=== PATIENT | female | born 1960 | race Caucasian/White ===

== ENCOUNTER 2020-03-31 15:08 | Inpatient (IN) | payer OTHER ==
[2020-03-31] VITALS (7 sets, daily range): BP systolic 81–115; BP diastolic 55–93
[~2020-03-31] VITALS: Ht 160 cm; Wt 93.7 kg
[~2020-03-31 15:08] MED LIST: AMLO1CAP4 PO; THYR60TA4 PO
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
[2020-03-31] MEDS ORDERED: KETOROLAC 30 MG/ML VIAL IM ONE (16:30)
[2020-03-31] MEDS ORDERED: ASPIRIN 81 MG CHEW (CHILDREN'S ASA) ONE (19:05)
[2020-03-31] MEDS ORDERED: TICAGRELOR 90 MG TABLET (BRILINTA) PO ONE ×2 (19:06→19:15)
--- NOTE | 2020-03-31 19:10 | NUR ---
Consent obtained for patient to go to rn cardiac cath.
[2020-03-31] MEDS ORDERED: ASPIRIN 81 MG CHEW (CHILDREN'S ASA) PO ONE ×2 (19:15→19:30)
[2020-03-31] MEDS ORDERED: meTOprolol 5 MG/5 ML (LOPRESSOR) VIAL ONE ×2 (19:17→19:23)
--- NOTE | 2020-03-31 19:32 | Cardiac Procedure Note-CS/ASA ---
Pre-Procedure Note Pre-Op Procedure Note H&P Reviewed The H&P was reviewed, patient examined and no changes noted. Date H&P Reviewed: Mar 31, 2020 Time H&P Reviewed: 19:32 Conscious Sedation Pre-Proced Time 19:32 ASA Score 3 For ASA 3 and 4: Consider anesthesia and medical clearance. Also, for patients with a history of failed moderate sedation consider anesthesia. Airway Lungs Heart ASA score ASA 1: a normal healthy patient ASA 2: a patient with a mild systemic disease (mid diabetes, controlled hypertension, obesity x ASA 3: a patient with a severe systemic disease that limits activity (angina, COPD, prior Myocardial infarction) ASA 4: a patient with an incapacitating disease that is a constant threat to life (CHF, renal failure) ASA 5: a moribund patient not expected to survive 24 hrs. (ruptured aneurysm) ASA 6: a declared brain- patient whose organs are being harvested. For emergent operations, add the letter E after the classification Mallampati Classification Grade 3 Sedation Plan Analgesia, Amnesia, Plan communicated to team members, Discussed options with patient/fam, Discussed risks with patient/fam The patient is an appropriate candidate to undergo the planned procedure, sedation, and anesthesia. The patient immediately re-assessed prior to indication. KYLEE CERNA MD Mar 31, 2020 19:32
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
[2020-03-31] MEDS ORDERED: NS IV 1000 ML 1,000 ML ONE (19:36)
[2020-03-31] MEDS ORDERED: MIDAZOLAM 5 MG/5 ML (VERSED) VIAL ONE (19:36)
[2020-03-31] MEDS ORDERED: fentaNYL INJECTION 100 MCG/2 ML AMP ONE (19:36)
[2020-03-31] MEDS ORDERED: LIDOCAINE 1% INJ 20 ML 20 ML VIAL ONE (19:36)
[2020-03-31] MEDS ORDERED: HEParin (CATH LAB) 2,000 ML IV ONE (19:36)
[2020-03-31] MEDS ORDERED: HEParin 1000 UNIT/ML (10ML VIAL) FOR BOLUS ONE (19:38)
[2020-03-31] MEDS ORDERED: NITRO DRIP 25000 MCG/D5W 250 ML IV ONE (19:38)
--- NOTE | 2020-03-31 19:45 | NUR ---
Patient taken to produce laborer by produce laborer team.
[2020-03-31] MEDS: NS IV 1000 ML 1,000 ML IV SCH ×2 (20:13→23:15)
[2020-03-31] MEDS ORDERED: PATIENT MAY USE OWN MEDS, ALL PO SCH (20:15)
[2020-03-31] MEDS ORDERED: NS IV 1000 ML 1,000 ML IV SCH (20:15)
[2020-03-31 20:18] LABS: HEMOGLOBIN 11.7 g/dL (11.5-16.0); MEAN PLATELET VOLUME 10.5 fL (9.0-12.2); WHITE BLOOD COUNT 10.1 10^3/uL (4.3-11.0)
--- NOTE | 2020-03-31 20:22 | Cardiac Cath Report ---
Cardiac Cath Report Physician (s)/Card Painter (s) Physician KYLEE CERNA MD Pre-Procedure Diagnosis Pre-Procedure Diagnosis: Non-ST elevation myocardial infarction Post-Procedure Note Procedure Start Date: Mar 31, 2020 Name of Procedure: Left heart catheterization Left ventriculogram Aortic root angiogram Findings/Procedure Note PROCEDURE NOTE: 59 years old lady admitted with acute chest pain, had EKG changes and elevation in troponin level 4.283. Continue to have mild heaviness in the chest, emergency cardiac catheterization was recommended,. After explaining the procedure to the patient, all pros and cons were explained, all questions were answered. The patient signed the consent and then she was placed on the cardiac catheterization laboratory. Groin was prepped SL fashion local anesthesia was used. Sheath placed in the artery. Matt right and left catheter were used to access the coronary system. Pigtail was used to access the left ventricular cavity. Left ventriculogram was done in 2 views Aortic root angiogram At the end of the procedure the sheath was removed. Closure device was deployed FINDINGS: Hemodynamics LV patient was hypertensive on arrival to the emergency room, given IV Lopressor and after sedation blood pressure became borderline low, LV pressure 88/24, end-diastolic pressure 24 Aorta 95/68 mean of 78 ANATOMY: Left Main is free of obstructive disease Left Anterior Descending is free of obstructive disease Left Circumflex is codominant artery with mild disease no signal can obstructive disease Right Coronory Artery has no significant obstructive disease LV Gram was done in the right anterior lobe like and left anterior oblique position both views showed normal left ventricular size, EF 50 percent Aorta evaluation done with aortic root angiogram showing normal aortic root, ascending aorta, aortic arch and descending aorta, no dissection or aneurysm was noted adherent, origin of the innominate artery, and left subclavian and left carotid arteries were normal CONCLUSION: 1. Normal coronary system 2. Normal left ventricular systolic function with ejection fraction 50 percent, elevated left ventricular end-diastolic pressure 3. Normal thoracic aorta DISCUSSION AND RECOMMENDATION: Patient had some chest pain and elevation in troponin with elevated blood pressure on arrival to the emergency room. Currently does not have any obstructive coronary artery disease, I will repeat her troponin evaluation. Patient was started on aspirin. Anesthesia Type: Conscious Sedation Estimated blood loss (mL): 25 ml Contrast Amount: 53 ml Total Radiation Dose: 401 mGy Post-Procedure Diagnosis Post-operative diagnosis: Chest pain Elevated troponin level Hypertension Back pain KYLEE CERNA MD Mar 31, 2020 20:22
[2020-03-31 20:29] LABS: PROTHROMBIN TIME PATIENT 13.9 SEC (12.2-14.7)
[2020-03-31 20:32] LABS: ALBUMIN 3.5 GM/DL (3.2-4.5)
[2020-03-31 20:33] LABS: CALCIUM 8.1 MG/DL (8.5-10.1)
[2020-03-31 20:34] LABS: GLUCOSE 138 MG/DL (70-105)
[2020-03-31 20:35] LABS: TOTAL PROTEIN 5.4 GM/DL (6.4-8.2)
[2020-03-31 20:36] LABS: BILIRUBIN,TOTAL 0.3 MG/DL (0.1-1.0); CARBON DIOXIDE 20 MMOL/L (21-32)
[2020-03-31 20:38] LABS: CREATININE SERUM 0.71 MG/DL (0.60-1.30); GFR ESTIMATED > 60
[2020-03-31 20:39] LABS: BUN/CREATININE RATIO 28
[2020-03-31 20:41] LABS: ALANINE AMINOTRANSFERASE 14 U/L (0-55)
[2020-03-31 21:30] LABS: ALKALINE PHOSPHATASE 51 U/L (40-136); CHLORIDE 108 MMOL/L (98-107); POTASSIUM 3.6 MMOL/L (3.6-5.0); SODIUM 137 MMOL/L (135-145)
--- NOTE | 2020-03-31 22:55 | NUR ---
2255-DANIELA COLLINS TO ROOM TO ASSESS RIGHT GROIN SITE. SITE SOFT AND DRESSING DRY/INTACT. D/T PATIENT'S DECREASING BLOOD PRESSURE OF 63/42, PULSE-65. PATIENT FELT NAUSEOUS, CLAMMY, AND HOT. CALLED DR. CERNA AND REPORTED PATIENT'S SYMPTOMS AND INFORMED HIM THAT RIGHT GROIN SITE CONTINUED TO BE SOFT AND DRY/INTACT AND THAT NORMAL SALINE WAS BEING BOLUSED . RECEIVED ORDER FOR 1MG ATROPINE. PRESSURE HELD FOR 10 MIN. 2314-DR. CERNA TO BEDSIDE. INFORMED HIM THAT ATROPINE HAD BEEN ADMINISTERED. GROIN SITE ASSESSED AND CONTINUED TO BE SOFT AND DRY/INTACT. CURRENT BP-88/57. RECEIVED ORDERS FOR 2L BOLUS. 233-DANIELA BRAVO AND ERICA HERRERA FROM SALES TEAM LEADER TO BEDSIDE TO ASSESS PATIENT. MANUAL PRESSURE HELD FOR 11 MIN BY DANIELA BRAVO. RIGHT GROIN SITE CONTINUED THROUGHOUT THIS TIME TO BE SOFT, DRY/INTACT. 0100-CALLED DR. CERNA AND INFORMED HIM THAT PATIENT'S BOLUS IS FINISHED AND HER CURRENT PRESSURE IS 72/50. RECEIVED ORDERS TO OBTAIN STAT CT OF ABD AND PELVIS. 0110-RECEIVED CALL FROM DR. CERNA AND RECEIVED ORDER TO START DOBUTAMINE GTT AT 10MCG. ORDER REPEATED AND READ BACK TO VERIFY. 0220-RECEIVED CALL FROM DR. CERNA AND INFORMED HIM THAT PATIENT IS C/O NAUSEA AND ANXIETY AND IS TACHY AT 120s. CURRENT BLOOD PRESSURE-109/70. RECEIVED ORDER TO DECREASE DOBUTAMINE GTT TO 7.5MCG WITH THE GOAL OF LOWER HR WHILE STILL MAINTAINING SYSTOLIC BP IN THE 90s. ALSO RECEIVED ORDER FOR ZOFRAN.
[2020-03-31] MEDS ORDERED: ATROPINE INJ 0.4 MG/ML SDV IV ONE (23:00)
[2020-03-31] MEDS ORDERED: ATROPINE INJECTION 1 MG/10 ML SYR (ABBOTT) ONE (23:01)
[2020-04-01] VITALS (15 sets, daily range): BP systolic 78–124; BP diastolic 46–81
[2020-04-01] MEDS: NS IV 1000 ML 1,000 ML IV SCH ×4 (00:15→13:14)
[2020-04-01] MEDS ORDERED: DOPamine DRIP 250 ML IV SCH (01:15)
[2020-04-01] MEDS ORDERED: DOPamine DRIP 0 ML IV ONE (01:16)
[2020-04-01] MEDS ORDERED: DOBUTamine DRIP 250 ML IV ONE (01:19)
[2020-04-01] MEDS: DOBUTamine DRIP 250 ML IV SCH ×4 (01:29→17:27)
[2020-04-01] MEDS ORDERED: ONDANSETRON 4 MG/2 ML (SDV) Z0FRAN ONE (02:25)
[2020-04-01] MEDS ORDERED: ONDANSETRON 4 MG/2 ML (SDV) Z0FRAN IVP PRN (02:45)
[2020-04-01 03:37] LABS: HEMOGLOBIN 12.3 g/dL (11.5-16.0); MEAN PLATELET VOLUME 10.5 fL (9.0-12.2); WHITE BLOOD COUNT 11.1 10^3/uL (4.3-11.0)
[2020-04-01 03:59] LABS: BUN/CREATININE RATIO 27; CARBON DIOXIDE 17 MMOL/L (21-32); CHLORIDE 112 MMOL/L (98-107); CREATININE SERUM 0.67 MG/DL (0.60-1.30); GFR ESTIMATED > 60; GLUCOSE 140 MG/DL (70-105); POTASSIUM 3.6 MMOL/L (3.6-5.0); SODIUM 140 MMOL/L (135-145)
--- NOTE | 2020-04-01 07:28 | Diagnostic Imaging Report ---
PROCEDURE: CT abdomen and pelvis without contrast. TECHNIQUE: Multiple contiguous axial images were obtained through the abdomen and pelvis without the use of intravenous contrast. Auto Exposure Controls were utilized during the CT exam to meet ALARA standards for radiation dose reduction. INDICATION: Hypotension after heart catheterization. Evaluate for retroperitoneal hematoma. FINDINGS: The lung bases demonstrate some minimal groundglass opacities within the lower lobes which could reflect pneumonitis or mild edema. There is no dense alveolar consolidation or significant effusion. Liver demonstrates a low-density cyst within the left hepatic lobe. There are also small gallstones within the gallbladder without biliary dilatation. The pancreas demonstrates no evidence of a focal abnormality. The spleen is normal in size. There is no adrenal mass. There is contrast within the kidneys related to the patient's previous heart catheterization. There is no hydronephrosis. There are no findings of small or large bowel dilation. There is a large degree of stool within the colon. There is no abnormal colonic thickening. The appendix appears normal. There is no free air or free fluid. There are no CT findings of a retroperitoneal hematoma. There is some stranding demonstrated about the right groin related to a recent groin access. This examination cannot exclude pseudoaneurysm or fistula. No acute or suspicious osseous abnormality is demonstrated. IMPRESSION: 1. No CT evidence for retroperitoneal hematoma. 2. No acute inflammatory or obstructive process evident. 3. Cholelithiasis without biliary dilatation. 4. Large degree of stool within the colon 5. Soft tissue stranding within the right groin related to recent venous access. While there is no retroperitoneal hematoma demonstrated, this examination cannot exclude a pseudoaneurysm or fistula. If clinical concern for those entities, ultrasound could be considered. Dictated by: Dictated on workstation # [id number]
[2020-04-01] MEDS: ASPIRIN E.C. 81 MG (ECOTRIN) TAB PO SCH (08:08)
[2020-04-01] MEDS ORDERED: HYDR12.56 PO (10:22)
[2020-04-01] MEDS ORDERED: METF-399 PO (10:22)
[2020-04-01] MEDS ORDERED: LEVO75TA6 PO (10:22)
[2020-04-01] MEDS ORDERED: AMLO1CAP4 PO (10:26)
[2020-04-01] MEDS ORDERED: MULT-974 PO (10:27)
[2020-04-01] MEDS ORDERED: B (10:28)
[2020-04-01] MEDS ORDERED: VITAMIN D PO (10:30)
--- NOTE | 2020-04-01 12:23 | Cardiology Progress Note ---
Subjective Date Seen by Provider: Apr 01, 2020 Time Seen by Provider: 12:19 Subjective/Events-last exam Patient is sitting comfortably in bed. Had significant hypotension last night did not respond to fluid challenge for a total of 3 L, CT of the abdomen and pelvis did not show any acute abnormality. I started her on dobutamine drip which improved her heart rate and blood pressure. Currently weaned off the dobutamine drip and borderline hypotensive Review of Systems General: No Chills, No Night Sweats; Fatigue; No Malaise, No Appetite, No Other HEENT: No Head Aches, No Visual Changes, No Eye Pain, No Ear Pain, No Dysphasia, No Sinus Congestion, No Post Nasal Drip, No Sore Throat, No Other Pulmonary: No Dyspnea, No Cough, No Pleuritic Chest Pain, No Other Cardiovascular: No: Chest Pain, Palpitations, Orthopnea, Paroxysmal Noc. Dyspnea, Edema, Lt Headedness, Other Objective-Cardiology Exam Last Set of Vital Signs Vital Signs 04/01/20 04/01/20 07:16 11:00 Temp 36.1 Pulse 100 Resp 21 B/P (MAP) 105/80 (88) Pulse Ox 99 O2 Delivery Nasal Cannula O2 Flow Rate 2.00 Capillary Refill : Less Than 3 Seconds I&O Intake and Output 04/01/20 00:00 Intake Total 1000 ml Output Total 0 ml Balance 1000 ml Intake IV Total 1000 ml Output Urine Total 0 ml Daily Weight Change No No General: Alert, Oriented X3, Cooperative, No Acute Distress HEENT: Atraumatic, PERRLA Neck: Supple, No JVD Lungs: Clear to Auscultation, Normal Air Movement Heart: Regular Rate, Normal S1, Normal S2, No Murmurs Abdomen: Normal Bowel Sounds, Soft, No Tenderness, No Hepatosplenomegaly, No Masses Extremities: No Clubbing, No Cyanosis, No Edema, Normal Pulses, No Tenderness/Swelling Skin: No Rashes, No Breakdown, No Significant Lesion Neuro: Normal Gait, Normal Speech, Strength at 5/5 X4 Ext, Normal Tone, Sensation Intact Psych/Mental Status: Mental Status NL, Mood NL Results Lab Laboratory Tests 03/31/20 20:05 04/01/20 03:20 A/P-Cardiology Admission Diagnosis Subacute myocardial infarction Coronary artery disease Chest pain Hypertension Diabetes mellitus Assessment/Plan Elevated troponin level, type II myocardial infarction, unknown etiology. Patient was hypertensive on arrival to the emergency room then became hypotensive. Conservative management is recommended Cardiac catheterization was carried out on March 31, 2020 showing normal coronaries. Continue to monitor Congestive heart failure, acute left ventricular systolic dysfunction with ejection fraction 30-35 percent, nonischemic cardiomyopathy. Hypokinesia involving the anterior wall, anterior septum, anteroapex and true apex. Questionable transient thrombosis that was cleared out in the LAD, did not see any significant obstructive disease or nonobstructive disease in her LAD system, other possibility is Takatsubo myocarditis, consideration for tickborne myocardi tis. Patient will have a LifeVest fitted and I will try to introduce her at a very low dose to losartan 12.5 mg and carvedilol 3.125 mg and evaluate tolerance and response. If she tolerated the medication well I will consider discharging her in the morning X Echocardiogram done on April 01, 2020 showing prominent left ventricle with hypokinesia involving the anterior wall, anterior septum, anterolateral wall and anterior apex, ejection fraction 30-35 percent, aneurysmal intra-atrial septum. Pulmonary hypertension PA pressure 40-45 mmHg. Diabetes mellitus, maintained on metformin, currently on hold Hypothyroidism, I restarted her levothyroxin. COVID testing was negative Clinical Quality Measures DVT/VTE Risk/Contraindication: Risk Factor Score Per Nursin RFS Level Per Nursing on Admit: 2=Moderate KYLEE CERNA MD Apr 01, 2020 12:23
[2020-04-01] MEDS: LOSARTAN 25 MG (COZAAR) TAB PO SCH (13:27)
[2020-04-01] MEDS: ENOXAPARIN 40 MG/0.4 ML (LOVENOX) SYR SQ SCH (13:44)
[2020-04-01] MEDS ORDERED: ACETAMINOPHEN 325 MG TABLET ONE (18:50)
[2020-04-01] MEDS: ACETAMINOPHEN 325 MG TABLET PO PRN (18:52)
[2020-04-01] MEDS: CARVEDILOL 3.125 MG (COREG) TABLET PO SCH (20:38)
[2020-04-02] VITALS (7 sets, daily range): BP systolic 96–129; BP diastolic 58–90
[2020-04-02] MEDS: DOBUTamine DRIP 250 ML IV SCH (02:11)
[2020-04-02] MEDS: NS IV 1000 ML 1,000 ML IV SCH (03:17)
[2020-04-02 03:37] LABS: HEMOGLOBIN 11.7 g/dL (11.5-16.0); MEAN PLATELET VOLUME 10.3 fL (9.0-12.2); WHITE BLOOD COUNT 9.9 10^3/uL (4.3-11.0)
[2020-04-02 03:46] LABS: ALBUMIN 3.6 GM/DL (3.2-4.5)
[2020-04-02 03:47] LABS: CHLORIDE 112 MMOL/L (98-107); SODIUM 142 MMOL/L (135-145)
[2020-04-02 03:48] LABS: CALCIUM 8.6 MG/DL (8.5-10.1)
[2020-04-02 03:49] LABS: GLUCOSE 106 MG/DL (70-105); TOTAL PROTEIN 5.6 GM/DL (6.4-8.2)
[2020-04-02 03:50] LABS: CARBON DIOXIDE 21 MMOL/L (21-32)
[2020-04-02 03:51] LABS: BILIRUBIN,TOTAL 0.5 MG/DL (0.1-1.0)
[2020-04-02 03:52] LABS: ALKALINE PHOSPHATASE 49 U/L (40-136)
[2020-04-02 03:53] LABS: GFR ESTIMATED > 60
[2020-04-02 03:54] LABS: BUN/CREATININE RATIO 16
[2020-04-02 03:56] LABS: ALANINE AMINOTRANSFERASE 16 U/L (0-55)
[2020-04-02] MEDS: LEVOTHYROXINE 75 MCG (LEVOTHROID) TABLET PO SCH (05:21)
[2020-04-02] MEDS: ACETAMINOPHEN 325 MG TABLET PO PRN ×3 (05:23→20:37)
[2020-04-02] MEDS ORDERED: VITAMIN D PO SCH (09:00)
[2020-04-02] MEDS: CARVEDILOL 3.125 MG (COREG) TABLET PO SCH ×2 (09:28→20:37)
[2020-04-02] MEDS: LOSARTAN 25 MG (COZAAR) TAB PO SCH (09:28)
[2020-04-02] MEDS: ASPIRIN E.C. 81 MG (ECOTRIN) TAB PO SCH (09:28)
[2020-04-02] MEDS ORDERED: LOSA25TA41 PO (09:49)
[2020-04-02] MEDS ORDERED: ASPI-1238 PO (09:49)
[2020-04-02] MEDS ORDERED: CARV3.122 PO (09:49)
--- NOTE | 2020-04-02 09:50 | Discharge Inst-Post CATH ---
Discharge Inst-CATH/EP Problems Reviewed?: Yes Post Cardiac Cath/EP D/C Inst Follow Up/Plan May restart metformin on April 03, [address] Reina's office in 2 weeks <b>CARDIAC CATH/EP PROCEDURE DISCHARGE INSTRUCTIONS</b> ACTIVITY * Go Home directly and rest. * Limit activity of the leg (or wrist if it was used) for 7 days including aerobics, swimming, jogging, bicycling, etc. * Restrict stair-climbing for 7 days if possible, if not, climb up with your non-cath leg, then bring together on the same step. * Avoid lifting, pushing, pulling or excessive movement of the affected extremity for 7 days. * Customary sexual activity may be resumed after 2 days-use caution not to use a position that strains or causes pain to the affected extremity. * No driving for 24 hours. * NO SMOKING. * Avoid straining for bowel movements for 7 days. * Gentle walking on level ground is allowed. * Returning to work will depend on the type of procedure and the results. Your doctor will discuss this with you. CALL YOUR DOCTOR FOR ANY OF THE FOLLOWING: *If bleeding from the puncture site occurs- Apply gentle pressure to site with clean cloth and call your doctor or EMS. * If a knot or lump forms under the skin, increases in size, or causes pain. * If bruising appears to be worsening or moving further down your leg instead of disappearing. * Temperature above 101 F. CARE OF YOUR GROIN INCISION; * Bruising or purple discoloration of the skin near the puncture site is common. * You may shower only, no bathtub bathing for 5 days. Be careful to avoid sl ipping as your leg may feel stiff. * If a closure device was used on your femoral artery, please see the attached guide regarding care of the device and your leg. * Leave dressing on FOR 24 hours. CARE OF YOUR WRIST INCISION; * Bruising or purple discoloration of the skin near the puncture site is common. * You may shower. * DO NOT submerge wrist. * Leave dressing on FOR 24 hours. KYLEE REINA MD Apr 02, 2020 09:50
--- NOTE | 2020-04-02 09:57 | Cardiology Discharge Summary ---
Discharge Summary Hospital Course Problems Reviewed?: Yes Hospital Course Date of Admission: Mar 31, 2020 at 20:15 Admission Diagnosis : Family Physician/Provider: Linn Painter Aprn Date of Discharge: 04/02/20 Discharge Diagnosis: [ ] Hospital Course: [ Elevated troponin level, type II myocardial infarction, unknown etiology. Patient was hypertensive on arrival to the emergency room then became hypotensive. Conservative management is recommended Cardiac catheterization was carried out on March 31, 2020 showing normal coronaries. Continue to monitor Congestive heart failure, acute left ventricular systolic dysfunction with ejection fraction 30-35 percent, nonischemic cardiomyopathy. Hypokinesia involving the anterior wall, anterior septum, anteroapex and true apex. Questionable transient thrombosis that was cleared out in the LAD, did not see any significant obstructive disease or nonobstructive disease in her LAD system, other possibility is Takatsubo myocarditis, consideration for tickborne myocarditis. Patient will have a LifeVest fitted, I will discharge her on low- dose Coreg and losartan Echocardiogram done on April 01, 2020 showing prominent left ventricle with hypokinesia involving the anterior wall, anterior septum, anterolateral wall and anterior apex, ejection fraction 30-35 percent, aneurysmal intra-atrial septum. Pulmonary hypertension PA pressure 40-45 mmHg. Diabetes mellitus, maintained on metformin, currently on hold Hypothyroidism, I restarted her levothyroxin. COVID testing was negative] Labs and Pending Lab Test: Laboratory Tests 04/01/20 10:50: Coronavirus 2019 ([facility]) Negative 04/01/20 12:25: Lyme Disease Screen IgG & IgM Ab [Pending], Lyme Antibody Interpretation [Pending], Ehrlichia chaffeensis IgG Antibody [Pending], Ehrlichia chaffeensis IgM Antibody [Pending], Spotted Fever Group IgG Antibody [Pending], Spotted Fever Group IgM Antibody [Pending], [place] Antibody [Pending] 04/02/20 03:26: White Blood Count 9.9, Red Blood Count 3.99, Hemoglobin 11.7, Hematocrit 36, Mean Corpuscular Volume 91, Mean Corpuscular Hemoglobin 29, Mean Corpuscular Hemoglobin Concent 32, Red Cell Distribution Width 13.1, Platelet Count 225, Mean Platelet Volume 10.3, Sodium Level 142, Potassium Level 4.0, Chloride Level 112H, Carbon Dioxide Level 21, Anion Gap 9, Blood Urea Nitrogen 11, Creatinine 0.70, Estimat Glomerular Filtration Rate > 60, BUN/Creatinine Ratio 16, Glucose Level 106H, Calcium Level 8.6, Corrected Calcium 8.9, Total Bilirubin 0.5, Aspartate Amino Transf (AST/SGOT) 28, Alanine Aminotransferase (ALT/SGPT) 16, Alkaline Phosphatase 49, Troponin I 2.236*H, B-Type Natriuretic Peptide 1053.6H, Total Protein 5.6L, Albumin 3.6 Home Meds Active Aspirin EC (Aspirin) 81 Mg Tablet.dr 81 Mg PO DAILY Losartan Potassium 25 Mg Tablet 12.5 Mg PO DAILY Carvedilol 3.125 Mg Tablet 3.125 Mg PO BID [Vitamin D] 1 Tab PO DAILY [B] B 12 GUMMY B 12 DAILY Multi-Vitamin Daily (Multivitamin) 1 Each Tablet 1 Each PO DAILY Levothyroxine Sodium 75 Mcg Tablet 75 Mcg PO DAILY Hydrochlorothiazide 12.5 Mg Tablet 12.5 Mg PO DAILY Metformin HCl 1,000 Mg Tablet 1,000 Mg PO BID Assessment/Pt DC Instructions Patient was instructed to hold metformin for [address] Reina's office in 2 weeks Started on Coreg and losartan, continue on hydrochlorothiazide Will be fitted for LifeVest Discharge Diet: Low Sodium Diet Orders-Post D/C & Referrals Pneu Vac Indicated: Yes Discharge Physical Examination Allergies: Coded Allergies: No Known Drug Allergies (Unverified , 11/25/09) General Appearance: No Apparent Distress, WD/WN HEENT: PERRL/EOMI, TMs Normal, Normal ENT Inspection, Pharynx Normal Respiratory: Chest Non Tender, Lungs Clear, Normal Breath Sounds, No Accessory Muscle Use, No Respiratory Distress Cardiovascular: Regular Rate, Rhythm, No Edema, No Gallop, No JVD, No Murmur, Normal Peripheral Pulses Gastrointestinal: Normal Bowel Sounds, No Organomegaly, No Pulsatile Mass, Non Tender, Soft Extremity: Normal Capillary Refill, Normal Inspection, Normal Range of Motion, Non Tender, No Calf Tenderness, No Pedal Edema Skin: Normal Color, Warm/Dry Neurologic/Psychiatric: Alert, Oriented x3, No Motor/Sensory Deficits, Normal 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
[2020-04-02] MEDS: ENOXAPARIN 40 MG/0.4 ML (LOVENOX) SYR SQ SCH (16:53)
--- NOTE | 2020-04-02 18:08 | NUR ---
1649 DR CERNA NOTIFIED THAT [facility] [employer] WILL NOT BE AVAILABLE UNTIL TOMORROW AM. PER DR CERNA PT MAY D/C HOME OR STAY THE NIGHT AND D/C TOMORROW. PT INFORMED OF ABOVE AND AFTER TALKING WITH FAMILY, HAS DECIDED TO STAY UNTIL LIFE [facility]ST APPLIED.
[2020-04-03 03:02] VITALS: BP 110/69
[2020-04-03 03:51] VITALS: BP 124/83
[2020-04-03 05:12] VITALS: BP 120/78
[2020-04-03] MEDS: LEVOTHYROXINE 75 MCG (LEVOTHROID) TABLET PO SCH (05:14)
[2020-04-03 08:27] VITALS: BP 138/95
[2020-04-03] MEDS: LOSARTAN 25 MG (COZAAR) TAB PO SCH (08:33)
[2020-04-03] MEDS: ASPIRIN E.C. 81 MG (ECOTRIN) TAB PO SCH (08:33)
[2020-04-03] MEDS: CARVEDILOL 3.125 MG (COREG) TABLET PO SCH (08:33)
--- NOTE | 2020-04-03 08:56 | Cardiology Progress Note ---
Subjective Date Seen by Provider: Apr 03, 2020 Time Seen by Provider: 08:55 Subjective/Events-last exam Patient was seen at bedside sitting comfortably, eating breakfast, discharge was postponed yesterday, waiting for LifeVest Review of Systems General: No Chills, No Night Sweats, No Fatigue, No Malaise, No Appetite, No Other HEENT: No Head Aches, No Visual Changes, No Eye Pain, No Ear Pain, No Dysphasia, No Sinus Congestion, No Post Nasal Drip, No Sore Throat, No Other Pulmonary: No Dyspnea, No Cough, No Pleuritic Chest Pain, No Other Cardiovascular: No: Chest Pain, Palpitations, Orthopnea, Paroxysmal Noc. Dyspnea, Edema, Lt Headedness, Other Objective-Cardiology Exam Last Set of Vital Signs Vital Signs 04/01/20 04/03/20 11:00 08:27 Temp 36.8 Pulse 90 Resp 16 B/P (MAP) 138/95 (109) Pulse Ox 93 O2 Delivery Room Air O2 Flow Rate 2.00 Capillary Refill : Less Than 3 Seconds I&O Intake and Output 04/03/20 00:00 Intake Total 2375 ml Balance 2375 ml Intake Oral 2375 ml # Voids 8 # Bowel Movements 1 General: Alert, Oriented X3, Cooperative, No Acute Distress HEENT: Atraumatic, PERRLA Neck: Supple, No JVD Lungs: Clear to Auscultation, Normal Air Movement Heart: Regular Rate, Normal S1, Normal S2, No Murmurs Abdomen: Normal Bowel Sounds, Soft, No Tenderness, No Hepatosplenomegaly, No Masses Extremities: No Clubbing, No Cyanosis, No Edema, Normal Pulses, No Tenderness/Swelling Skin: No Rashes, No Breakdown, No Significant Lesion Neuro: Normal Gait, Normal Speech, Strength at 5/5 X4 Ext, Normal Tone, Sensation Intact Psych/Mental Status: Mental Status NL, Mood NL A/P-Cardiology Admission Diagnosis Subacute myocardial infarction Coronary artery disease Chest pain Hypertension Diabetes mellitus Assessment/Plan Elevated troponin level, type II myocardial infarction, unknown etiology. P atient was hypertensive on arrival to the emergency room then became hypotensive. Conservative management is recommended Cardiac catheterization was carried out on March 31, 2020 showing normal coronaries. Continue to monitor Congestive heart failure, acute left ventricular systolic dysfunction with ejection fraction 30-35 percent, nonischemic cardiomyopathy. Hypokinesia inv olving the anterior wall, anterior septum, anteroapex and true apex. Questionable transient thrombosis that was cleared out in the LAD, did not see any significant obstructive disease or nonobstructive disease in her LAD system, other possibility is Takatsubo myocarditis, consideration for tickborne myocarditis. Patient will have a LifeVest fitted and I will try to introduce her at a very low dose to losartan 12.5 mg and carvedilol 3.125 mg and evaluate tolerance and response. Possible discharge today Echocardiogram done on April 01, 2020 showing prominent left ventricle with hypokinesia involving the anterior wall, anterior septum, anterolateral wall and anterior apex, ejection fraction 30-35 percent, aneurysmal intra-atrial septum. Pulmonary hypertension PA pressure 40-45 mmHg. Diabetes mellitus, maintained on metformin, currently on hold Hypothyroidism, maintained on levothyroxin COVID testing was negative Clinical Quality Measures AMI/AHF: D/C Medications Addressed: Angiotension receptor sol, Beta sol, Diuretic DVT/VTE Risk/Contraindication: Risk Factor Score Per Nursin RFS Level Per Nursing on Admit: 2=Moderate KYLEE CERNA MD Apr 03, 2020 08:56
--- NOTE | 2020-04-03 09:30 | NUR ---
PT STATED UNDERSTANDING ON DISCHARGE INSTRUCTIONS. PT MAY DISCHARGE AFTER [facility] EDUCATION.
--- NOTE | 2020-04-03 12:55 | NUR ---
MIGNON WITH [facility] NOTIFIED THIS NURSE PT IS ALL SET UP FOR DISCHARGE.
[2020-04-03 13:25] VITALS: BP 138/95
== END 2020-04-03 13:25 | disposition home or self-care (01) | DRG 280 ==
LOC: EDUNIT# 15:08 → ER 15:09 → CATH 19:04 → CSD 20:15
PROVIDERS: ADMIT Internal Medicine Cardiovascular Disease; ATTEND Internal Medicine Cardiovascular Disease
PROC: 4A023N7 Measurement of Cardiac Sampling and Pressure, Left Heart, Percutaneous Approach (ICD-10-PCS; principal; 2020-03-31)
PROC: B2111ZZ Fluoroscopy of Multiple Coronary Arteries using Low Osmolar Contrast (ICD-10-PCS; 2020-03-31)
PROC: B2151ZZ Fluoroscopy of Left Heart using Low Osmolar Contrast (ICD-10-PCS; 2020-03-31)
PROC: B3101ZZ Fluoroscopy of Thoracic Aorta using Low Osmolar Contrast (ICD-10-PCS; 2020-03-31)
DX: I11.0 Hypertensive heart disease with heart failure (principal); I50.21 Acute systolic (congestive) heart failure; I21.A1 Myocardial infarction type 2; I42.9 Cardiomyopathy, unspecified; I27.20 Pulmonary hypertension, unspecified; E03.9 Hypothyroidism, unspecified; E11.9 Type 2 diabetes mellitus without complications; Z79.84 Long term (current) use of oral hypoglycemic drugs; Z20.828 Contact with and (suspected) exposure to other viral communicable diseases
CPT/HCPCS: 36221; 36415; 74176; 80048; 80053; 83880; 84484; 85027; 85610; 85730; 86618; 86666; 86668; 86757; 87635; 93005; 93306; 93458

== ENCOUNTER → 2020-07-04 | Outpatient (CLI) | payer OTHER ==
[~2020-07-04] MED LIST changes: +ASPI-1238 PO; +B; +CARV3.122 PO; +HYDR12.56 PO; +LEVO75TA6 PO; +LOSA25TA41 PO; +METF-399 PO; +MULT-974 PO; +VITAMIN D PO
== END ==
LOC: CARD 12:39
PROVIDERS: ATTEND Physician Assistant
DX: I50.9 Heart failure, unspecified (principal); I35.1 Nonrheumatic aortic (valve) insufficiency; I51.7 Cardiomegaly
CPT/HCPCS: 93306

== ENCOUNTER → 2022-09-29 | Outpatient (CLI) | payer OTHER | LOC: CARD 11:26 | PROVIDERS: ATTEND Internal Medicine Cardiovascular Disease | DX: I11.9 Hypertensive heart disease without heart failure (principal) | CPT/HCPCS: 93306 ==